=== PATIENT | male | born 1990 | race Caucasian/White ===

== ENCOUNTER 2020-06-04 09:12 | Day surgery (SDC) | payer OTHER, SELFPAY ==
[~2020-06-04] VITALS: Ht 157.5 cm; Wt 54.4 kg
[2020-06-04] MEDS ORDERED: MIDAZOLAM 2 MG/2 ML VIAL ONE (12:12)
[2020-06-04] MEDS ORDERED: diphenhydrAMINE 50 MG/ML VIAL ONE (12:12)
[2020-06-04] MEDS ORDERED: fentaNYL citrate 0.05 MG/ML VIAL ONE (12:12)
[2020-06-04] MEDS ORDERED: LIDOCAINE 2% 100 MG/5 ML UJET TP ONE (12:12)
== END 2020-06-04 13:34 | disposition home or self-care (01) ==
LOC: MDS 09:12 → MFCC 09:12 → MDS 13:34
PROVIDERS: ATTEND Internal Medicine Gastroenterology
DX: K62.5 Hemorrhage of anus and rectum (principal); K59.00 Constipation, unspecified; Z87.891 Personal history of nicotine dependence; Z11.59 Encounter for screening for other viral diseases
CPT/HCPCS: 45378; J2250; J3010; U0003; J1200